=== PATIENT | male | born 1965 | race Caucasian/White ===

== ENCOUNTER 2018-10-31 12:46 | Day surgery (SDC) | payer BC ==
[~2018-10-31] VITALS: Ht 175.3 cm; Wt 116.4 kg
[~2018-10-31 12:46] MED LIST: Fortamet500 MG PO; Januvia50 MG PO
--- NOTE | 2018-10-31 13:55 | NUR ---
10/31/18 2421 Lulú Louis PATIENT STATES HE FEELS "BAD" AND JUST FEELING SICK. THINKS HIS BLOOD SUGAR MIGHT BE LOW NOW. I STAYED IN THE ROOM AND TALKED THE PATIENT THROUGH THE IV THAT LO BREEN WAS STARTING. CHEM BG WAS CHECKED AND IN NORMAL RANGE 143. PATIENT ADVISED. HE IS LAYING ON THE GURNEY WITH COLD WASH CLOTH OVER HIS FOREHEAD. APPX 5MINUTES AFTER THE IV IS FINISHED I CHECK WITH PATIENT AND HE DOES ADMIT TO FEELING BETTER AT THIS TIME. PATIENT STABLE, CALL LIGHT AT BEDSIDE
--- NOTE | 2018-10-31 14:32 | NUR ---
10/31/18 1432 Lulú Louis O2 WITH NON REBREATHER AT 10L
--- NOTE | 2018-10-31 15:24 | NUR ---
10/31/18 1524 Lulú Louis PATIENT REFUSED MULTIPLE OFFERS OF SOMETHING TO DRINK
== END 2018-10-31 15:19 | disposition home or self-care (01) ==
LOC: ORSCSDS 12:46
PROVIDERS: Student in an Organized Health Care Education/Training Program
PROC: 0DJD8ZZ Inspection of Lower Intestinal Tract, Via Natural or Artificial Opening Endoscopic (ICD-10-PCS; principal; 2018-10-31 14:00)
DX: Z12.11 Encounter for screening for malignant neoplasm of colon (principal); K57.30 Diverticulosis of large intestine without perforation or abscess without bleeding; K64.4 Residual hemorrhoidal skin tags; E11.9 Type 2 diabetes mellitus without complications; G47.33 Obstructive sleep apnea (adult) (pediatric); E78.5 Hyperlipidemia, unspecified; Z79.84 Long term (current) use of oral hypoglycemic drugs; Z79.899 Other long term (current) drug therapy; E66.9 Obesity, unspecified; Z68.37 Body mass index [BMI] 37.0-37.9, adult
CPT/HCPCS: 82947; J2250; J7120

== ENCOUNTER → 2021-06-14 | Outpatient (CLI) | payer OTHER ==
[2021-06-14 15:28] LABS: Appearance, Urine Hazy (Clear); Color, Urine Yellow (P-Yellow); Specific Gravity, Urine 1.015 (1.003-1.022)
[2021-06-14 15:29] LABS: Bilirubin, Urine Neg (Neg); Blood, Urine 1+ (Neg); Glucose Qualitative, Urine Neg (Normal); Ketones, Urine 1+ (Neg); Leukocyte Esterase, Urine 1+ (Neg); Nitrite, Urine Neg (Neg); Protein, Urine Neg (Neg); Urobilinogen, Urine NORM (Normal)
[2021-06-14 15:30] LABS: Bacteria Few /hpf; Squamous Epithelial Cells Few /hpf (Few)
== END ==
LOC: LAB SHORT 15:16
PROVIDERS: Physician Assistant
DX: R31.29 Other microscopic hematuria (principal)
CPT/HCPCS: 81001; 87086

== ENCOUNTER → 2021-07-18 | Outpatient (CLI) | payer OTHER | LOC: LAB 12:08 → LAB SHORT 12:08 | DX: Z13.9 Encounter for screening, unspecified (principal) | CPT/HCPCS: 87177; 87209 ==